=== PATIENT | female | born 1970 | race Caucasian/White ===

== ENCOUNTER 2018-05-12 10:28 | Outpatient (REF) | payer BC, SELFPAY ==
[2018-05-12 13:40] LABS: Abs Immature Grans 0.01 k/cumm (0.0-0.09); Absolute Basophil Count 0.06 k/cumm (0.0-0.2); Absolute Eosinophil Count 0.59 k/cumm (0.0-0.7); Absolute Monocyte Count 0.57 k/cumm (0.11-0.7); Absolute Neutrophil Count 2.74 k/cumm (1.2-6.7); Eosinophils % 9.4; HCT 40.7 % (36.0-46.0); HGB 13.9 g/dL (12.0-15.5); Immature Grans % 0.2; Lymphocytes % 36.7; Mean Corp. HGB Concentration 34.2 g/dL (32.0-36.0); Mean Corpuscular Hemoglobin 29.4 pg (27.0-33.0); Mean Corpuscular Volume 86.2 fL (80-95); Mean Platelet Volume 11.4 fL (8.0-11.0); Monocytes % 9.1; Neutrophils % 43.6; Platelet Count 294 x1000/uL (130-400); RBC 4.72 m/cumm (4.00-5.20); RBC Distribution Width 12.3 % (11.7-14.6); White Blood Cell Count 6.27 k/cumm (4.4-10.8)
[2018-05-12 13:54] LABS: ALT 35 U/L (12-78); AST 22 U/L (15-37); Albumin 3.8 g/dL (3.4-5.0); Alkaline Phosphatase 70 U/L (46-116); Anion Gap 10.6 mmol/L (3-11); BUN 19 mg/dL (7-18); Bilirubin, Total 0.2 mg/dL (0.2-1.0); CO2 27.4 mmol/L (21.0-32.0); CREATININE 0.84 mg/dL (0.55-1.02); Calcium 9.4 mg/dL (8.5-10.1); Chloride 103 mmol/L (98-107); Glucose 98 mg/dL (70-100); Lipase 191 U/L (73-393); Potassium 4.1 mmol/L (3.5-5.1); Sodium 141 mmol/L (136-145); TSH (W/Ref FT4) 1.83 uIU/mL (0.358-3.74); Total Protein 7.4 g/dL (6.4-8.2)
== END 2018-05-12 10:48 ==
LOC: NCHCN 10:28
PROVIDERS: PCP Internal Medicine; Visit Provider Internal Medicine
DX: R53.83 Other fatigue (principal); R10.9 Unspecified abdominal pain; R42 Dizziness and giddiness; R11.0 Nausea
CPT/HCPCS: 80053; 83690; 84443; 85025

== ENCOUNTER 2018-05-18 00:40 | Outpatient (CLI) | payer BC, SELFPAY ==
--- NOTE | 2018-05-18 07:16 | DI.US_ITS ---
SYMPTOM/DIAGNOSIS: ABD PAIN, R10.9, NAUSEA, R11.1 ABDOMEN ULTRASOUND: Routine examination was performed. No priors for comparison. The abdominal aorta and IVC are unremarkable. The liver is normal in size. There is diffuse increased echogenicity of the liver suggesting fatty infiltration. No hepatic mass is seen. The gallbladder and common bile duct are within normal limits. The tail of the pancreas could not be visualized but the remainder of the pancreas has a normal appearance. The spleen is at the upper limits of normal in size but otherwise unremarkable. The kidneys are unremarkable. IMPRESSION: Hepatic steatosis.
== END 2018-05-18 01:00 ==
PROVIDERS: PCP Internal Medicine; Visit Provider Internal Medicine
DX: R10.9 Unspecified abdominal pain (principal); R11.0 Nausea; K76.0 Fatty (change of) liver, not elsewhere classified
CPT/HCPCS: 76700

== ENCOUNTER 2018-06-24 13:57 | Outpatient (CLI) | payer BC, SELFPAY ==
--- NOTE | 2018-06-24 13:50 | DI.RAD_ITS ---
SYMPTOMS/DIAGNOSIS: RIGHT ANKLE PAIN RIGHT ANKLE: Four views. No bone or joint abnormality is identified. The soft tissues are unremarkable. IMPRESSION: No acute abnormality.
== END 2018-06-24 14:17 ==
PROVIDERS: PCP Internal Medicine; Visit Provider Student in an Organized Health Care Education/Training Program
DX: M25.571 Pain in right ankle and joints of right foot (principal)
CPT/HCPCS: 73610

== ENCOUNTER 2018-08-03 00:33 | Outpatient (CLI) | payer BC, SELFPAY ==
--- NOTE | 2018-08-03 07:42 | DI.MAMMO_ITS ---
SYMPTOM/DIAGNOSIS: SCREENING, Z12.39, FAMILY H/O BREAST CA, Z80.3 MAMMOGRAMS: Mammograms were interpreted according to the usual protocol including computer analysis with CAD system, tomosynthesis and C view imaging. Comparison is made with prior examinations. Breast density, Category C. No suspicious masses or microcalcifications are seen. There is no definite evidence of malignancy. IMPRESSION: Negative mammogram. Routine screening is recommended. Category 1. MQSA ASSESSMENT OF FINDINGS: Negative. Category 1. Patient will receive a letter notifying them of these results. Bi-RADS category C. The breasts are heterogeneously dense, which may obscure small masses.
== END 2018-08-03 00:53 ==
PROVIDERS: PCP Internal Medicine; Visit Provider Internal Medicine
DX: Z12.31 Encounter for screening mammogram for malignant neoplasm of breast (principal); Z80.3 Family history of malignant neoplasm of breast
CPT/HCPCS: 77063; 77067

== ENCOUNTER 2019-07-16 15:24 | Outpatient (REF) | payer BC, SELFPAY ==
[2019-07-16 20:54] LABS: ALT 80 U/L (14-59); AST 46 U/L (15-37); Alkaline Phosphatase 71 U/L (46-116); Anion Gap 11.6 mmol/L (3-11); BUN 19 mg/dL (7-18); Bilirubin, Total 0.3 mg/dL (0.2-1.0); CO2 28.4 mmol/L (21.0-32.0); CREATININE 0.94 mg/dL (0.55-1.02); Calcium 9.5 mg/dL (8.5-10.1); Chloride 104 mmol/L (98-107); FREE T4 1.01 ng/dL (0.76-1.46); Glucose 92 mg/dL (74-106); Potassium 4.2 mmol/L (3.5-5.1); Sodium 144 mmol/L (136-145); TSH 1.31 uIU/mL (0.36-3.74); Total Protein 7.3 g/dL (6.4-8.2)
[2019-07-19 08:42] LABS: Cyclic Citrullinated Peptide <2.5 U/mL (<5.0)
[2019-07-19 11:38] LABS: Lyme Ab w Rflx to Lyme Confirm Negative (Negative)
[2019-07-20 10:57] LABS: c-ANCA Negative (Negative); p-ANCA Negative (Negative)
[2019-07-20 15:23] LABS: ANA Interpretation Negative (Negative)
== END 2019-07-16 15:44 ==
LOC: NCHCN 15:24
PROVIDERS: PCP Internal Medicine; Visit Provider Internal Medicine
DX: H15.011 Anterior scleritis, right eye (principal); E03.9 Hypothyroidism, unspecified
CPT/HCPCS: 80053; 86200; 84439; 84443; 86038; 86255; 86618

== ENCOUNTER 2020-01-25 13:28 | Outpatient (REF) | payer BC, SELFPAY ==
[2020-01-25 20:56] LABS: ALT 32 U/L (14-59); AST 21 U/L (15-37); Albumin 3.9 g/dL (3.4-5.0); Alkaline Phosphatase 69 U/L (46-116); Bilirubin, Direct 0.12 mg/dL (0.00-0.20); Bilirubin, Total 0.4 mg/dL (0.2-1.0); Total Protein 7.2 g/dL (6.4-8.2)
[2020-01-27 11:09] LABS: Hepatitis C Ab w Rflx HCV PCR Negative (Negative)
== END 2020-01-25 13:48 ==
LOC: NCHCN 13:28
PROVIDERS: PCP Internal Medicine; Visit Provider Internal Medicine
DX: R94.5 Abnormal results of liver function studies (principal); Z11.59 Encounter for screening for other viral diseases
CPT/HCPCS: 80076; 86803

== ENCOUNTER 2020-03-10 17:32 | Outpatient (REF) | payer BC, SELFPAY ==
[2020-03-15 01:21] LABS: Patient Race White; SARS-CoV-2 RNA Undetected (Undetected); SARS-CoV-2 Specimen Source Nasal
== END 2020-03-10 17:52 ==
LOC: NCHCN 17:32
PROVIDERS: PCP Internal Medicine; Visit Provider Internal Medicine
DX: Z20.828 Contact with and (suspected) exposure to other viral communicable diseases (principal)
CPT/HCPCS: U0003

== ENCOUNTER 2020-11-21 16:28 | Outpatient (REF) | payer SELFPAY ==
[2020-11-21 22:31] LABS: Calculated LDL 133 mg/dL (<100); Cholesterol 216 mg/dL (<200); HDL Cholesterol 63 mg/dL (40-60); TSH 1.15 uIU/mL (0.36-3.74); Triglyceride 103 mg/dL (<150)
== END 2020-11-21 16:29 | disposition home or self-care (01) ==
LOC: NCHCN 16:28
PROVIDERS: PCP Internal Medicine; Visit Provider Internal Medicine
DX: Z13.220 Encounter for screening for lipoid disorders (principal); E03.9 Hypothyroidism, unspecified; R63.5 Abnormal weight gain
CPT/HCPCS: 80061; 83036; 84439; 84443

== ENCOUNTER 2020-12-14 01:46 | Outpatient (CLI) | payer OTHER, SELFPAY ==
--- NOTE | 2020-12-14 | DI.MAMMO_ITS ---
Exam(s) MAMMO SCREENING EXAM: MAMMO SCREENING CLINICAL HISTORY: SCREENING,Z12.39,FAMILY H/O BREAST CA. TECHNIQUE: Bilateral full field digital CC and MLO mammographic images were obtained with 3D tomosyn thesis and utilizing computer aided detection (CAD). COMPARISON: Prior mammograms dating back to 2013, the most recent being July 2018. FINDINGS: The fibroglandular tissue is moderately dense. There are no obvious new spiculated masses nor malignant appearing microcalcification groups. There is no significant architectural distortion nor skin thickening-retraction. IMPRESSION: Moderately dense fibroglandular tissue. No obvious radiographic evidence of malignancy. However, I note that the patient mentioned the technologist that she has a lump and therefore breast ultrasound is recommended BI-RADS Category 0 - Assessment Incomplete: Need additional imaging evaluation Breast Density - Category C - Heterogeneously dense Breast density Category C or D implies that the patient has dense breast tissue. Dense breast tissue can make it harder to find cancer on a mammogram. Dense breast tissue is also associated with an incr eased risk of breast cancer. This information about the result of the mammogram report was provided to the patient to raise their awareness. Use this report when you speak with the patient about their risks for breast cancer, which includes their family history. At that time, you may recommend additional screening tests (Ultrasoun d or MRI) as these tests may add significant information. A negative radiographic report should not delay biopsy if a dominant or clinically suspicious mass is present. Up to ten percent of cancers are not identified on mammography. A negative report may reinforce clinical impression. Adenosis and dense breasts may obscure an underlying neoplasm. False positive reports average 6 to 10%. Patient will receive a letter notifying them of these results.
== END 2020-12-14 02:06 ==
PROVIDERS: PCP Internal Medicine; Visit Provider Internal Medicine
DX: Z12.31 Encounter for screening mammogram for malignant neoplasm of breast (principal); R92.8 Other abnormal and inconclusive findings on diagnostic imaging of breast
CPT/HCPCS: 77063; 77067

== ENCOUNTER 2022-02-19 14:08 | Outpatient (REF) | payer OTHER, SELFPAY ==
[2022-02-19 17:10] LABS: Hemoglobin A1C 6.3 % (<5.7)
[2022-02-19 17:21] LABS: TSH 1.69 uIU/mL (0.36-3.74)
== END 2022-02-19 14:09 | disposition home or self-care (01) ==
LOC: NCHCN 14:08
PROVIDERS: PCP Internal Medicine; Visit Provider Internal Medicine
DX: Z00.00 Encounter for general adult medical examination without abnormal findings (principal); E03.9 Hypothyroidism, unspecified; R73.03 Prediabetes; R14.0 Abdominal distension (gaseous); N95.1 Menopausal and female climacteric states
CPT/HCPCS: 83036; 84443

== ENCOUNTER 2022-03-06 15:54 | Outpatient (REF) | payer OTHER, SELFPAY ==
[2022-03-07 09:24] LABS: CA 125 13 U/mL (<30)
== END 2022-03-06 15:55 | disposition home or self-care (01) ==
LOC: NCHCN 15:54
PROVIDERS: PCP Internal Medicine; Visit Provider Internal Medicine
DX: R14.0 Abdominal distension (gaseous) (principal)
CPT/HCPCS: 86304

== ENCOUNTER 2023-05-09 04:26 | Outpatient (CLI) | payer OTHER, SELFPAY | END 2023-05-09 04:27 | disposition home or self-care (01) | PROVIDERS: PCP Internal Medicine; Visit Provider Family Medicine | DX: E03.9 Hypothyroidism, unspecified (principal) | CPT/HCPCS: 36415; 84443 ==

== ENCOUNTER 2023-06-30 14:08 | Outpatient (REF) | payer OTHER, SELFPAY ==
[2023-06-30 15:01] LABS: Anion Gap 10.8 mmol/L (3-11); BUN 17 mg/dL (7-18); CO2 25.2 mmol/L (21.0-32.0); CREATININE 0.9 mg/dL (0.55-1.02); Calcium 9.2 mg/dL (8.5-10.1); Calculated LDL 136 mg/dL (<100); Chloride 106 mmol/L (98-107); Cholesterol 241 mg/dL (<200); Estimated GFR 76.44 (mL/min/1.73m2); Glucose 139 mg/dL (74-106); HDL Cholesterol 78 mg/dL (40-60); Potassium 4.1 mmol/L (3.5-5.1); Sodium 142 mmol/L (136-145); Triglyceride 139 mg/dL (<150)
[2023-06-30 15:06] LABS: Hemoglobin A1C 5.9 % (<5.7)
== END 2023-06-30 14:09 | disposition home or self-care (01) ==
LOC: NCHCN 14:08
PROVIDERS: PCP Internal Medicine; Referring Provider Family Medicine; Visit Provider Family Medicine
DX: R73.03 Prediabetes (principal); E03.9 Hypothyroidism, unspecified; E78.5 Hyperlipidemia, unspecified
CPT/HCPCS: 80048; 80061; 83036

== ENCOUNTER 2024-07-02 15:33 | Outpatient (REF) | payer OTHER, SELFPAY ==
[2024-07-02 17:00] LABS: ALT 25 U/L (14-59); AST 21 U/L (15-37); Albumin 3.8 g/dL (3.4-5.0); Alkaline Phosphatase 63 U/L (46-116); Anion Gap 9.3 mmol/L (3-11); BUN 19 mg/dL (7-18); Bilirubin, Total 0.4 mg/dL (0.2-1.0); CO2 27.7 mmol/L (21.0-32.0); CREATININE 1.1 mg/dL (0.55-1.02); Calcium 9.4 mg/dL (8.5-10.1); Calculated LDL 152 mg/dL (<100); Chloride 108 mmol/L (98-107); Cholesterol 255 mg/dL (<200); Estimated GFR 59.71 (mL/min/1.73m2); Glucose 114 mg/dL (74-106); HDL Cholesterol 90 mg/dL (>or=50); Potassium 3.9 mmol/L (3.5-5.1); Sodium 145 mmol/L (136-145); TSH (W/Ref FT4) 1.13 uIU/mL (0.36-3.74); Total Protein 7.1 g/dL (6.4-8.2); Triglyceride 68 mg/dL (<150)
== END 2024-07-02 15:34 | disposition home or self-care (01) ==
LOC: NCHCN 15:33
PROVIDERS: PCP Internal Medicine; Visit Provider Family Medicine
DX: R73.03 Prediabetes (principal); E03.9 Hypothyroidism, unspecified
CPT/HCPCS: 80053; 80061; 83036; 84443

== ENCOUNTER 2024-07-09 00:17 | Outpatient (CLI) | payer OTHER, SELFPAY ==
--- NOTE | 2024-07-09 09:44 | DI.RAD_ITS ---
Exam(s) XR LUMBAR SPINE COMPLETE XR SACROILIAC JOINTS EXAM: XR LUMBAR SPINE COMPLETE and XR sacroiliac joints CLINICAL HISTORY: LUMBOSACRAL RADICULOPATHY,M54.17. TECHNIQUE: 2D digital imaging was performed of the lumbar spine and sacroiliac joints. Eight images were obtained. AP, lateral, right oblique, left oblique and L5-S1 spot views were obtained. COMPARISON: There are no priors for comparison. FINDINGS: BONES: No fracture or destructive lesion. Vertebral bodies are unremarkable. No facet hypertrophy jason ntified. DISKS: Intervertebral disc spaces are maintained. ALIGNMENT: There is a very mild right convex curvature of the lumbar spine. No spondylolysis or spon dylolisthesis. SOFT TISSUE: Normal. The sacroiliac joints are well maintained. No erosions or fusion is seen. The bones are normally mi neralized. IMPRESSION: Unremarkable examination of the lumbosacral spine. Sacroiliac joints are grossly unremarkable. DATA REPOSITORY: RADIATION DOSE DELIVERED:
== END 2024-07-09 00:37 ==
LOC: DI 00:17
PROVIDERS: Visit Provider Family Medicine
DX: M54.17 Radiculopathy, lumbosacral region (principal)
CPT/HCPCS: 72110; 72202

== ENCOUNTER 2024-08-03 00:53 | Outpatient (CLI) | payer OTHER, SELFPAY ==
--- NOTE | 2024-08-03 | DI.MRI_ITS ---
Exam(s) MR LUMBAR SPINE WO EXAM: MR LUMBAR SPINE WO CLINICAL HISTORY: lumbosacral radiculopathy, M54.17. TECHNIQUE: Multiplanar multisequence MRI of the Lumbar spine was performed. COMPARISON: CR XR SACROILIAC JOINTS from 07/09/2024 CR XR LUMBAR SPINE COMPLETE from 07/09/2024 FINDINGS: Bones: The last intervertebral disc space is designated the L5/S1 level for the numbering purpose of this ex amination. The vertebral body heights are well maintained. Alignment: Unremarkable. The marrow signal characteristics are unremarkable. Cord: The conus tip ends at the T12 level. It is of normal size and signal intensity. T12-L1: No focal disc herniation is present. No central spinal canal stenosis.No neural foraminal st enosis. L1-2: No focal disc herniation is present. No central spinal canal stenosis.No neural foraminal sten osis. L2-3: No focal disc herniation is present. No central spinal canal stenosis.No neural foraminal petey nosis. L3-4: No focal disc herniation is present. No central spinal canal stenosis.No neural foraminal petey nosis. L4-5:Slight disc narrowing endplate osteophytes projecting toward the right. Mild disc bulging. Fac et degenerative changes and ligamentous hypertrophy. No focal disc herniation is present. Mild cent ral spinal canal stenosis.No neural foraminal stenosis. L5-S1: Mild loss of disc height and partial disc desiccation. Large central disc herniation with ext rusion of disc material causing severe central canal stenosis. The herniated disc material measures approximately 14 by 16 by 15 millimeters. No neural foraminal stenosis. The visualized SI joints and sacrum are unremarkable. Soft tissues: The paraspinal soft tissues are unremarkable. IMPRESSION: Large central disc herniation with extrusion of disc material at L5-S1 causing severe central canal s tenosis. Mild central canal stenosis at L4-5 secondary to combination of degenerative changes. DATA REPOSITORY:
== END 2024-08-03 01:13 ==
LOC: DI 00:53
PROVIDERS: Visit Provider Family Medicine
DX: M51.27 Other intervertebral disc displacement, lumbosacral region (principal)
CPT/HCPCS: 72148

== ENCOUNTER 2024-09-02 22:12 | Outpatient (REF) | payer OTHER, SELFPAY ==
[2024-09-02 21:56] LABS: HGB 14.2 g/dL (11.2-15.7); MCH 29.2 pg (27.0-33.0); MCHC 33.8 % (32.0-36.0); MCV 86 fL (80-95); MPV 11.7 fL (8.0-11.0); Platelet Count 331 10^3/uL (130-400); RBC 4.87 10^6/uL (3.93-5.22); RDW 12.2 % (11.7-14.6); RDW-SD 38.5 fL; WBC 5.73 10^3/uL (4.4-10.8)
[2024-09-02 22:04] LABS: Anion Gap 9.5 mmol/L (3-11); BUN 16 mg/dL (7-18); CO2 26.5 mmol/L (21.0-32.0); CREATININE 0.8 mg/dL (0.55-1.02); Calcium 9.3 mg/dL (8.5-10.1); Chloride 105 mmol/L (98-107); Glucose 94 mg/dL (74-106); Potassium 4.1 mmol/L (3.5-5.1); Sodium 141 mmol/L (136-145)
== END 2024-09-02 22:13 | disposition home or self-care (01) ==
LOC: NCHCN 22:12
PROVIDERS: Visit Provider Family Medicine
DX: Z01.818 Encounter for other preprocedural examination (principal)
CPT/HCPCS: 80048; 85027